=== PATIENT | female | born 1985 | race Caucasian/White ===

== ENCOUNTER 2016-12-03 05:26 | Day surgery (SDC) | payer BC, OTHER ==
[2016-12-01 11:25] LABS: HEMATOCRIT 42.9 % (36.0-47.0); HEMOGLOBIN 14.2 g/dL (12.0-15.5); HGB HCT DIFFERENCE -0.3; MEAN CORPUSCULAR VOLUME 91 fl (80-97); RED BLOOD COUNT 4.72 10^6/uL (3.72-5.28); RED CELL DISTRIBUTION WIDTH 12.8 % (11.5-14.0); WHITE BLOOD COUNT 6.9 10^3/uL (4.0-10.5)
[2016-12-01 11:31] LABS: APPEARANCE,URINE SLIGHTLY-CLOUDY; BILIRUBIN,URINE NEGATIVE (NEGATIVE); GLUCOSE, URINE NEGATIVE (NEGATIVE); KETONES,URINE NEGATIVE (NEGATIVE); LEUKOCYTE ESTERASE,URINE NEGATIVE (NEGATIVE); NITRITE,URINE NEGATIVE (NEGATIVE); PROTEIN,URINE NEGATIVE (NEGATIVE); URINE SPECIFIC GRAVITY 1.008; UROBILINOGEN,URINE NEGATIVE mg/dL (<2.0)
[~2016-12-03 05:26] MED LIST: LACTATED RINGERS 1000 ML IV PRN; LIDOCAINE 0.5% INJ-PF (5 MG/ML) 50 ML SDV SUBCUT PRN
[2016-12-03] MEDS ORDERED: LIDOCAINE 1% INJ-PF (10 MG/ML) 30 ML SDV ONE (06:33)
[2016-12-03] MEDS ORDERED: LIDOCAINE 2% INJ-PF (20 MG/ML) 10 ML AMPUL ONE (07:02)
[2016-12-03] MEDS ORDERED: HYDROMORPHONE HCL INJ/PF 2 MG/ML AMPULE ONE (07:02)
[2016-12-03] MEDS ORDERED: ONDANSETRON HCL INJ/PF 4 MG/2 ML SDV ONE (07:03)
[2016-12-03] MEDS ORDERED: PROPOFOL INJ 200 MG/20 ML VIAL IV ONE (07:03)
[2016-12-03] MEDS ORDERED: MIDAZOLAM 2 MG/2 ML INJ ONE (07:03)
[2016-12-03] MEDS ORDERED: DEXAMETHASONE SOD PHOSPHATE INJ 4 MG/1 ML VIAL ONE (07:03)
[2016-12-03] MEDS ORDERED: ACETAMINOPHEN 100 ML IV ONE (07:03)
[2016-12-03] MEDS ORDERED: OXYCODONE-ACETAMINOPHEN 5-325 MG TABLET PO PRN ×3 (07:40→08:03)
[2016-12-03] MEDS ORDERED: FENTANYL CITRATE INJ/PF 100 MCG/2 ML AMPUL IV PRN ×3 (07:40)
[2016-12-03] MEDS ORDERED: MEPERIDINE HCL/PF INJ 25 MG/1 ML DISP.SYRIN IV PRN (07:40)
[2016-12-03] MEDS ORDERED: MORPHINE SULFATE 10 MG/ML INJ IV PRN (07:40)
[2016-12-03] MEDS ORDERED: PROMETHAZINE HCL INJ 25 MG/1 ML VIAL IV PRN ×2 (07:40)
[2016-12-03] MEDS ORDERED: ONDANSETRON HCL INJ/PF 4 MG/2 ML SDV IV PRN (07:40)
[2016-12-03] MEDS ORDERED: DIPHENHYDRAMINE HCL 50 MG/ML VIAL IV PRN (07:40)
[2016-12-03] MEDS ORDERED: PROMETHAZINE HCL INJ 25 MG/1 ML VIAL IM PRN (08:03)
[2016-12-03] MEDS ORDERED: IBUPROFEN 800 MG TABLET PO SCH (10:00)
[2016-12-03 10:22] VITALS: BP 104/71
--- NOTE | 2016-12-03 12:13 | OPERATIVE REPORT E ---
Operative Report NAME: TIP BUCKNER : 1985 AGE: 30Y DATE OF SURGERY: 12/03/2016 ROOM: PREOPERATIVE DIAGNOSIS: Retained IUD. POSTOPERATIVE DIAGNOSIS: Retained IUD. PROCEDURE: Hysteroscopic IUD retrieval and IUD reinsertion with Mirena. SURGEON: BRITNEY DOW M.D. COMPLICATIONS: None. ANESTHESIA: LMA. FINDINGS: That of normal-appearing uterus. IUD in situ. String was wound up in the fundal position . INDICATIONS FOR PROCEDURE: The patient , desiring replacement. . This failed and has elected to proceed to hysteroscope. Usual risks of bleeding, infection, anesthesia, and damage to organs and tissues were discussed and the patient understood. Ultrasound demonstrated . DESCRIPTION OF PROCEDURE: The patient was taken to the operating room and placed in the modified lithotomy position. After adequate anesthesia was ascertained, prepped and draped in the usual manner for hysteroscopy. Cervix was dilated to admit an operative hysteroscope. Bladder was left undrained. Surgical timeout was then performed. Hysteroscope inserted. The IUD was noted and IUD retrieval . IUD was replaced with Mirena IUD . The patient was taken to the recovery room in stable condition. Bleeding was nil. DICTATING PHYSICIAN: BRITNEY DOW M.D. [id number] PHY#: [id number] ID: [id number] JOB#: [id number] ACCT: [id number] cc:BRITNEY DOW M.D. >
== END 2016-12-03 09:40 | disposition home or self-care (01) ==
LOC: OROUT 05:26
PROVIDERS: ATTEND Specialist
PROC: 0U2DXHZ Change Contraceptive Device in Uterus and Cervix, External Approach (ICD-10-PCS; principal; 2016-12-03 07:15)
DX: Z30.433 Encounter for removal and reinsertion of intrauterine contraceptive device (principal); Z79.899 Other long term (current) drug therapy; F17.210 Nicotine dependence, cigarettes, uncomplicated; G43.909 Migraine, unspecified, not intractable, without status migrainosus
CPT/HCPCS: 36415; 85027; 81025; 81001; 58579; 58300; J2250; J1100; J1170; J2405; J2704; J3490; J0131; 952